=== PATIENT | male | born 1980 | race African-American/Black ===

== ENCOUNTER 2017-08-03 08:25 | Emergency (ER) | payer SELFPAY ==
[~2017-08-03] VITALS: Ht 188 cm; Wt 86.0 kg
[2017-08-03] MEDS ORDERED: MORPHINE SULFATE 4 MG/ML CPJ (NOT FOR IM USE) IV ONE ×2 (10:00→12:15)
[2017-08-03] MEDS ORDERED: TERBUTALINE SULFATE 1MG/ML VIAL SUBCUT ONE (10:00)
[2017-08-03] MEDS ORDERED: KETOROLAC 30MG/ML VIAL IV ONE (10:00)
[2017-08-03] MEDS ORDERED: TERBUTALINE SULFATE 2.5MG TABLET PO SCH ×2 (10:15→12:15)
[2017-08-03] MEDS ORDERED: LIDOCAINE HCL/EPINEPHRINE 1%-EPI 1:100,000 30 ML VIAL INFIL ONE (12:15)
[2017-08-03] MEDS ORDERED: PHENYLEPHRINE IV ONE (12:15)
[2017-08-03] MEDS ORDERED: SODIUM CHLORIDE 0.9% IV ONE (12:15)
[2017-08-03 14:14] VITALS: BP 127/76
== END 2017-08-03 14:54 | disposition home or self-care (01) ==
LOC: ER 09:17
DX: N48.33 Priapism, drug-induced (principal); F12.10 Cannabis abuse, uncomplicated; F17.290 Nicotine dependence, other tobacco product, uncomplicated
CPT/HCPCS: 36415; 54220; 85660; 96372; 96374; 96375; 96376; 99291; 99406; J1885; J2270; J2370; J3105; Z7610